=== PATIENT | male | born 2000 | race Hispanic/Latino ===

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

== ENCOUNTER 2024-01-19 03:58 | Emergency (ER) | payer SELFPAY ==
--- OUTSIDE RECORDS SUMMARY | 2024-01-19 04:01 | XMS REPORT | Continuity of Care Document ---
Author Name Unknown Address [address] [facility] [place] [address] [facility] thconnect Address [address] [facility] [place] [address] Care Team Providers Care Boiler Washer Name Role Phone PCP, PATIENT DOES NOT HAVE A Primary Care Physic donna Unavailable LEONA BANG Attending Clinician Unavailable Leona Bang MD Attending Clinician TODD AQUINO Attending Clinician Unavailable LEONA BANG Admitting Clinician Unavailable Payers Payer Name Policy Type Policy Number Effective Date Expirati on Date Source [facility] [id number] 2020 00:00:00 Allergies, Adverse Reactions, Alerts Allergy Name Allergy Type Status Severity Reaction(s) Onset Date Inactive Date Treating Clinician Comments Source NO KNOWN ALLERGIE S Drug Class Active [facility] Social History Social Habit Start Date Stop Date Quantity Comments Source Sexual orientation U [facility] Sex assigned at 2000 00:00:00 2000 00:00:00 [facility] Smoking Status Start Date Stop Date Source Tobacco smoking consumption unknown [facility] Medications Ordered Medication Name Filled Medication Name Start Date Stop Date Current Medication? Ordering Clinician Indication Dosage Frequency Signature (SIG) Comments Components Source ibuprofen (IBU) tablet 800 mg 12-20 21:00: 00 12-20 21:28 :00 No 800mg 800 mg, Oral, ONCE, 1 dose, On Thu12/21/23 at 1600, EFRAÍN [facility] ibuprofen 800 mg tablet 12-20 00:00: 00 Yes [id number] 800mg Take 1 tablet by mouth every 8 (eight) hours as needed for Pain (scale 4-6). [facility] ibuprofen 800 mg tablet 12-27 00:00: 00 12-20 00:00 :00 No [id number] 800mg Take 1 tablet by mouth every 8 (eight) hours as needed for Pain (scale 4-6). [facility] ALBUTEROL INHALE 03-10 12:21: 45 Yes None Entered [facility] Vital Signs Vital Name Observation Time Observation Value Comments S our Systolic blood pressure 2023-12-21 20:44:00 181 mm[Hg] [facility] Diastolic blood pressure 2023-12-21 20:44:00 83 mm[Hg] [facility] Heart rate 2023-12-21 20:44:00 99 /min [facility] Body temperature 2023-12-21 20:44:00 37.22 Heather [facility] Respiratory rate 2023-12-21 20:44:00 14 /min [facility] Body height 2023-12-21 20:44:00 172.7 cm [facility] Body weight 2023-12-21 20:44:00 145.151 kg [facility] BMI 2023-12-21 20:44:00 48.66 kg/m2 [facility] Oxygen saturation in Arterial blood by Pulse oximetry 2023-12-21 20:44:00 98 /min [facility] Procedures Procedure Date / Time Performed Performing Clinicia n Source XR SACRUM AND COCCYX 2023-12-21 21:16:55 Akbar Bang [facility] XR LUMBAR SPINE 3 VW 2023-12-21 21:16:37 Akbar Bang [facility] Encounters Start Date/Time End Date/Time Encounter Type Admission Type Attending Clinicians Care Facility Care Department Encounter ID Source 2023-12-21 15:46:00 2023-12-21 16:53:00 Emergency X LEONA BANG [facility] ERT [id number] [facility] 2023-12-21 15:46:00 2023-12-21 16:53:00 Emergency Leona Bang [facility] [id number] [id number] [facility] 2020-12-26 23:27:00 2020-12-26 23:27:00 Emergency X TODD AQUINO [facility] ERT [id number] [facility] Results Test Description Test Time Test Comments Results Resul t Comments Source XR LUMBAR SPINE 3 VW 2023-12-21 21:25:44 EXAM: XR LUMBAR SPINE 3 VW, XR SACRUM AND COCCYX HISTORY: fall COMPARISON: None. [facility] XR SACRUM AND COCCYX 2023-12-21 21:25:44 EXAM: XR LUMBAR SPINE 3 VW, XR SACRUM AND COCCYX HISTORY: fall COMPARISON: None. [facility] Notes Date/Time Note Provider Source 2023-12-21 16:53:14 [id number]:53:14 Written/verbal d/c instructions, out of er no distress [id number] department UyihWT4946-19-70G54:53:29Emergency department [id number]. [id number] for patient [id number]r C-CDA narrative [id number] M. Barton RN[address] Pu[id number] PYCBQCXZXUXOUTDECMSHJ4567-47-15F82:53 :291.2.840.417335.1.72.3.15|1.2.840.1 [id number] 2 June Sutton RN [facility] 2023-12-21 15:42:27 [id number]:42:27 Pt states " my Knee give up yesterday and I fell, I fell on my butt and my tailbone is hurting right now" 21917-7Whnntyxtq department Triage tykfKE7840-46-72M88:46:15[facility] Triage [id number]. [id number] for patient [id number] department NoteLNNARRATIVEFormatted C-CDA narrative [id number] D Latorilla RN[address] [id number] URDDNTKTGDHIAPVJBPDYT1866-51-07B60:46 :151.2.840.119032.1.72.3.15|1.2.840.1 [id number] 5 Katty Meza RN [facility] 2023-12-21 15:38:00 [id number]:38:00 [facility] Emergency Department NotePatient Name: Yossi Hernandez of : 2000 23 year old maleTreatment Room: [place] [address]Medical Record Number: [id number] Care Physician: Roxy Sweet (Inactive)Patient Escorted by: Family [5]Mode of Arrival: Personal means [1]EMS Treatment Prior to ED Arrival:Travel and Exposure Screening:SymptomsDoes patient have any of these symptoms?: (not recorded)Exposure ScreeningHas patient had contact with someone with a communicable disease in the last month?: (not recorded)Diseases exposed to:: (not recorded)Is Patient ?: (not recorded)Exposure Date: (not recorded)Chief Complaint:Chief ComplaintPatient presents withFallyesterdayHistory of Present Illness:Pt here for a fall,He slipped and landed on his tailbone, he can ambulate, he has not taken any meds, he has pain to tailbone, he has pain to sacrumHe has not lost control of bladder or bowelPast Medical History/Immunizations:History reviewed. No pertinent past medical history.Allergies:No Known AllergiesPast Social History:Substance & Sexual ActivityNo substance use or sexual activity history on file.Past Surgical History:History reviewed. No pertinent surgical history.Review of Systems:Review of SystemsConstitutional: Negative for diaphoresis and fatigue.HENT: Negative.Respiratory: Negative.Musculoskeletal: Positive for gait problem.All other systems reviewed and are negative.Physical Exam:ED Triage Vitals [12/21/23 1544]Weight 145.2 kg (320 lb)Actual or estimated Estimated by patient/family reportHeight 1.727 m (5' 8")BP (!) 181/83Pulse 99Resp 14Temp 37.2 ?C (99 ?F)Temp source OralSpO2 98 %Measured on Room airPhysical ExamVitals and nursing note reviewed.Constitutional:Appearance: He is obese.HENT:Head: Normocephalic.Right Ear: External ear normal.Left Ear: External ear normal.Nose: Nose normal.Mouth/Throat:Mouth: Mucous membranes are moist.Eyes:Extraocular Movements: Extraocular movements intact.Pupils: Pupils are equal, round, and reactive to light.Cardiovascular:Rate and Rhythm: Normal rate and regular rhythm.Pulmonary:Effort: Pulmonary effort is normal.Abdominal:General: Abdomen is flat.Palpations: Abdomen is soft.Musculoskeletal:General: No swelling or deformity. Normal range of motion.Cervical back: Normal range of motion.Comments: Tender to palpation tailbone, steady gaitSkin:General: Skin is warm.Capillary Refill: Capillary refill takes less than 2 seconds.Neurological:General: No focal deficit present.Mental Status: He is alert and oriented to person, place, and time.Radiology:XR SACRUM AND COCCYXFinal ResultEXAM: XR LUMBAR SPINE 3 VW, XR SACRUM AND COCCYXHISTORY: fallCOMPARISON: None.IMPRESSIONFINDINGS/IMPRESSION::F rontal and lateral radiographs of lumbar spine were performed.There are 5 nonrib-bearing lumbar type segments.The vertebral bodies are normal in height and alignment.Disc spaces are preserved.The paraspinal soft tissues are unremarkable.Intact cortical margins of the visualized sacrum and coccyx. Normalalignment of the sacrococcygeal junction. The visualized pelvic bones areunremarkable.XR LUMBAR SPINE 3 VWFinal ResultEXAM: XR LUMBAR SPINE 3 VW, XR SACRUM AND COCCYXHISTORY: fallCOMPARISON: None.IMPRESSIONFINDINGS/IMPRESSION::F rontal and lateral radiographs of lumbar spine were performed.There are 5 nonrib-bearing lumbar type segments.The vertebral bodies are normal in height and alignment.Disc spaces are preserved.The paraspinal soft tissues are unremarkable.Intact cortical margins of the visualized sacrum and coccyx. Normalalignment of the sacrococcygeal junction. The visualized pelvic bones areunremarkable.Lab Results:Lab Results - No data to displayEKG:If EKG completed, see Procedure Note.Orders and Treatments:Orders Placed This EncounterProceduresXR SACRUM AND COCCYXXR LUMBAR SPINE 3 VWOrders Placed This EncounterMedicationsibuprofen (IBU) tablet 800 mgFirst Provider Eval:ED EventsDate/Time Event User Rkwfocos90/03/24 1545 Medical Screening Begins LEONA BANG MD --12/21/23 1545 First Provider Evaluation LEONA BANG MD --ED COURSEDiagnosis/Impression as of 12/21/23 1634Fall, initial encounterSacral painContusion of sacrum, initial encounterProcedures:ProceduresMDM:Med ical Decision MakingPt here for a fall,He slipped and landed on his tailbone, he can ambulate, he has not taken any meds, he has pain to tailbone, he has pain to sacrumHe has not lost control of bladder or bowelDdx contusion fracture l spine injuryXray done and stableMotrin rx givenPt to follow up and take motrin for painAnd use donut pillowAmount and/or Complexity of Data ReviewedRadiology: ordered.Details: No results found for this or any previous visit (from the past 24 hour(s)).Hospital Encounter on 12/21/23-XR SACRUM AND COCCYX:NarrativeEXAM: XR LUMBAR SPINE 3 VW, XR SACRUM AND COCCYXHISTORY: fallCOMPARISON: None.ImpressionFINDINGS/IMPRESSION::F rontal and lateral radiographs of lumbar spine were performed.There are 5 nonrib-bearing lumbar type segments.The vertebral bodies are normal in height and alignment.Disc spaces are preserved.The paraspinal soft tissues are unremarkable.Intact cortical margins of the visualized sacrum and coccyx. Normalalignment of the sacrococcygeal junction. The visualized pelvic bones areunremarkable.-XR LUMBAR SPINE 3 VW:NarrativeEXAM: XR LUMBAR SPINE 3 VW, XR SACRUM AND COCCYXHISTORY: fallCOMPARISON: None.ImpressionFINDINGS/IMPRESSION::F rontal and lateral radiographs of lumbar spine were performed.There are 5 nonrib-bearing lumbar type segments.The vertebral bodies are normal in height and alignment.Disc spaces are preserved.The paraspinal soft tissues are unremarkable.Intact cortical margins of the visualized sacrum and coccyx. Normalalignment of the sacrococcygeal junction. The visualized pelvic bones areunremarkable.RiskPrescription drug management.Flowsheet Documentation:Scoring Tools:No data recordedDisposition/Condition:ED DispositionNoneDischarge Medications:Patient's MedicationsSTART taking these medicationsNo medications on fileCONTINUE taking these medications which have NOT CHANGEDALBUTEROL INHALE None EnteredIBUPROFEN 800 MG TABLET Take 1 tablet by mouth every 8 (eight) hours as needed for Pain (scale 4-6).SINGULAIR ORAL None EnteredSTART taking Modified Medications as PrescribedNo medications on fileSTOP taking these medicationsNo medications on fileFollow-up:Electronically signed by:Leona Bang MD12/21/23 1641 [id number] Emergency department LzzmEV7089-32-08R40:41:32Physician Emergency department [id number]. [id number] for patient lzqr76548-6Olyzygwkh department NoteLNNARRATIVEFormatted C-CDA narrative textUTMBPRESBYTERIAN SANTA FE MEDICAL CENTER - [address] [id number] [id number]:41 :321.2.840.458821.1.72.3.15|1.2.840.1 [id number] 5 [facility]
[2024-01-19] MEDS ORDERED: METOCLOPRAMIDE 10 MG/2mL INJ ONE (04:53)
[2024-01-19] MEDS ORDERED: ONDANSETRON 4 MG/2 ML VIAL ONE (04:53)
[2024-01-19] MEDS ORDERED: FAMOTIDINE 20 MG/2 ML VIAL IV ONE (04:54)
[2024-01-19] MEDS ORDERED: NA CHLORIDE 0.9% 1,000 ML ONE (04:54)
[2024-01-19 04:55] LABS: Absolute Eosinophils 0.2 K/uL (0-0.5); Absolute Monocytes 1.1 K/uL (0.1-1.3); MCV 88.7 fL (80-100)
[2024-01-19 05:02] LABS: Absolute Lymphocytes (CBC) 2.8 K/uL (0.7-4.9); Basophils % 0.5 % (0-1.3); Eosinophils % 2.2 % (0-4.4); Hematocrit 39.1 % (39.6-49.0); Hemoglobin 13.2 g/dL (13.6-17.9); Lymphocytes % 34.6 % (15.3-44.8); MCH 29.9 pg (27.0-35.0); MCHC 33.7 g/dL (32.0-36.0); Monocytes % 13.9 % (3.3-12.3); Neutrophils % 48.8 % (41.7-73.7); Nucleated Red Blood Cells % 0.2 % (0-0); Platelets 372 thou/uL (152-406); Red Cell Distribution Width 13.7 % (12.1-15.2)
[2024-01-19 05:06] LABS: Albumin 3.5 g/dL (3.4-5.0); Albumin/Globulin Ratio 0.7 (1.1-1.8); Anion Gap 8.6 mEq/L (5.0-15.0); Bilirubin Total 0.4 mg/dL (0.2-1.0); Globulin 4.7 g/dL (2.3-3.5); Potassium 3.6 mEq/L (3.5-5.1); Protein, Total 8.2 g/dL (6.4-8.2)
--- NOTE | 2024-01-19 06:18 | ER ---
Nurse's Notes [facility] Name: Castillo Baptiste Age: 23 yrs Sex: Male : 2000 Arrival Date: 01/19/2024 Time: 03:58 Bed 17 Private MD: Diagnosis: Hematemesis;Acute hematemesis secondary to retching;Acute tonsillitis, unspecified Presentation: 01/18 04:16 Chief complaint: Patient states: I was recently diagnosed with an upper respiratory kd3 infection and have had a fever. My throat started to hurt on night and it also looks like i have tonsil stones. This morning i coughed up some bloody mucous and then i vomited and there was bright red blood in the toilet. Coronavirus screen: Vaccine status: Patient reports being unvaccinated. Ebola Screen: No symptoms or risks identified at this time. 04:16 Method Of Arrival: Ambulatory kd3 04:19 Initial Sepsis Screen: Does the patient meet any 2 criteria? No. Patient's initial kd3 sepsis screen is negative. Does the patient have a suspected source of infection? No. Patient's initial sepsis screen is negative. Risk Assessment: Do you want to hurt yourself or someone else? Patient reports no desire to harm self or others. Onset of symptoms was January 19, 2024. 04:19 Acuity: BLAINE 3 kd3 Triage Assessment: 04:19 General: Appears in no apparent distress. Behavior is calm, cooperative. Pain: kd3 Complains of pain in uvula, left aspect of posterior pharynx and right aspect of posterior pharynx. Neuro: Level of Consciousness is awake, alert, obeys commands, Oriented to person, place, time, situation. Historical: - Allergies: 04:19 No Known Allergies; kd3 - Immunization history:: Adult Immunizations up to date. - Infectious Disease History:: Denies. - Social history:: Smoking status: Patient denies any tobacco usage or history of. - Family history:: not pertinent. Screenin:40 [facility] ED Fall Risk Assessment (Adult) History of falling in the last 3 months, ha1 including since admission No falls in past 3 months (0 pts) Confusion or Disorientation No (0 pts) Intoxicated or Sedated No (0 pts) Impaired Gait No (0 pts) Mobility Assist Device Used No (0 pt) Altered Elimination No (0 pt) Score/Fall Risk Level 0 - 2 = Low Risk Oriented to surroundings, Maintained a safe environment, Educated pt \T\ family on fall prevention, incl call for assistance when getting out of bed, Hourly rounding (assess needs \T\ fall precautionary measures) done. Abuse screen: Denies threats or abuse. Denies injuries from another. Nutritional screening: No deficits noted. Tuberculosis screening: No symptoms or risk factors identified. Assessment: 04:07 General: Appears comfortable, Behavior is calm, cooperative. Pain: Complains of pain in ha1 sore throat. Neuro: Level of Consciousness is awake, alert, obeys commands, Oriented to person, place, time, situation. Cardiovascular: Capillary refill < 3 seconds Patient's skin is warm and dry. Respiratory: Airway is patent Respiratory effort is even, unlabored, Respiratory pattern is regular, symmetrical. GI: Abdomen is round non-distended, obese, Bowel sounds present X 4 quads. Reports nausea, vomiting blood. EENT: Reports pain in mouth when swallowing. Derm: Skin is pink, warm \T\ dry. Musculoskeletal: Circulation, motion, and sensation intact. Range of motion: intact in all extremities. 05:00 Reassessment: Patient and/or family updated on plan of care and expected duration. Pain ha1 level reassessed. Patient is alert, oriented x 3, equal unlabored respirations, skin warm/dry/pink. 06:00 Reassessment: Patient and/or family updated on plan of care and expected duration. Pain ha1 level reassessed. Patient is alert, oriented x 3, equal unlabored respirations, skin warm/dry/pink. Patient denies pain at this time. Patient states feeling better. Patient states symptoms have improved. Vital Signs: 04:16 BP 127 / 70; Pulse 107; Resp 16; Temp 99(O); Pulse Ox 99% ; Weight 151.05 kg; Height 5 kd3 ft. 7 in. ; 05:00 BP 127 / 61; Pulse 98; Resp 17 S; Pulse Ox 99% on R/A; ha1 06:00 BP 123 / 61; Pulse 71; Resp 17 S; Pulse Ox 97% on R/A; ha1 04:16 Body Mass Index 52.15 (151.05 kg, 170.18 cm) kd3 [place] Coma Score: 06:25 Eye Response: spontaneous(4). Motor Response: obeys commands(6). Verbal Response: sp4 oriented(5). Total: 15. ED Course: 04:03 Patient arrived in ED. mr 04:07 Patient has correct armband on for positive identification. Bed in low position. Call ha1 light in reach. Side rails up X 1. Adult w/ patient. 04:19 Luigi Gurrola MD is Attending Physician. sp4 04:19 Triage completed. kd3 04:19 Arm band placed on. kd3 04:22 Seema Benton, DWAYNE is Primary Nurse. ha1 04:43 Inserted saline lock: 20 gauge in right antecubital area, using aseptic technique. oe Blood collected. 04:44 Lipase Sent. oe 04:44 CMP Sent. oe 04:44 CBC with Diff Sent. oe 06:00 Provided Education on: follow ups . ha1 06:34 No provider procedures requiring assistance completed. IV discontinued, intact, ha1 bleeding controlled, No redness/swelling at site. Pressure dressing applied. Administered Medications: 05:00 Drug: NS 0.9% IV 1000 ml IV at 1 bolus Per protocol; 1000 mL bolus Route: IV; Rate: 1 ha1 bolus; Site: right antecubital; 06:32 Follow up: Response: No adverse reaction; IV Status: Completed infusion; IV Intake: ha1 1000ml 05:00 Drug: Ondansetron IVP 8 mg IVP once; over 2 minutes Route: IVP; Site: right antecubital;ha1 05:28 Follow up: Response: No adverse reaction; Marked relief of symptoms ha1 05:02 Drug: metoCLOPramide IVP 10 mg IVP once; over 1 to 2 minutes Route: IVP; Site: right ha1 antecubital; 05:28 Follow up: Response: No adverse reaction; Marked relief of symptoms ha1 05:04 Drug: Famotidine IVP 20 mg IVP once; dilute with 10 mL 0.9% NaCl; give over 2 minutes ha1 Route: IVP; Site: right antecubital; 05:28 Follow up: Response: No adverse reaction; Marked relief of symptoms ha1 06:20 Drug: Alum-Mag Hydroxide-Simeth PO Suspension (200 mg-200 mg-20 mg/5 mL) 30 ml PO once ha1 Route: PO; 06:31 Follow up: Response: No adverse reaction ha1 Medication: 06:33 VIS not applicable for this client. ha1 Intake: 06:32 IV: 1000ml; Total: 1000ml. ha1 Outcome: 06:17 Discharge ordered by . sp4 06:34 Discharged to home ambulatory, with family, ha1 06:34 Condition: stable 06:34 Discharge instructions given to patient, family, Instructed on discharge instructions, follow up and referral plans. medication usage, Demonstrated understanding of instructions, follow-up care, medications, Prescriptions given X 3, 06:35 Patient left the ED. ha1 Signatures: Madelyn Owusu, Reg Reg mr Ervin, Javier Angelica Walker RN RN kd3 Seema Benton RN RN ha1 Luigi Gurrola MD MD sp4
--- NOTE | 2024-01-19 06:18 | EDPHYS ---
Physician Documentation [facility] Name: Castillo Baptiste Age: 23 yrs Sex: Male : 2000 Arrival Date: 01/19/2024 Time: 03:58 Bed 17 Private MD: ED Physician Luigi Gurrola HPI: 01/18 04:19 This 23 yrs old Male presents to ER via Ambulatory with complaints of vomiting sp4 blood. 06:25 Patient states he was diagnosed with upper respiratory infection and now he presents sp4 with vomiting or retching and 1 episode of vomiting blood.. Historical: - Allergies: 04:19 No Known Allergies; kd3 - Immunization history:: Adult Immunizations up to date. - Infectious Disease History:: Denies. - Social history:: Smoking status: Patient denies any tobacco usage or history of. - Family history:: not pertinent. ROS: 06:25 Constitutional: Negative for fever, chills, and weight loss, positive for bloody emesis sp4 06:25 All other systems are negative, Exam: 06:25 Constitutional: This is a well developed, well nourished patient who is awake, alert, sp4 and in no acute distress. Head/Face: Normocephalic, atraumatic. Eyes: Pupils equal round and reactive to light, extra-ocular motions intact. Lids and lashes normal. Conjunctiva and sclera are not injected. Cornea within normal limits. Periorbital areas with no swelling, redness, or edema. ENT: Nares patent. No nasal discharge, no septal abnormalities noted. Tympanic membranes are normal and external auditory canals are clear. Oropharynx with no redness, swelling, or masses, exudates, or evidence of obstruction, uvula midline. Mucous membranes moist. Neck: Trachea midline, no thyromegaly or masses palpated, and no cervical lymphadenopathy. Supple, full range of motion without nuchal rigidity, or vertebral point tenderness. Chest/axilla: Normal chest wall appearance and motion. Nontender with no deformity. No lesions are appreciated. Cardiovascular: Regular rate and rhythm with a normal S1 and S2. No gallops, murmurs, or rubs. Normal PMI, no JVD. No pulse deficits. Respiratory: Lungs have equal breath sounds bilaterally, clear to auscultation and percussion. No rales, rhonchi or wheezes noted. No increased work of breathing, no retractions or nasal flaring. Abdomen/GI: Soft, with normal bowel sounds. No distension or tympany. No guarding or rebound. No evidence of tenderness throughout. Back: No spinal tenderness. No costovertebral tenderness. Skin: Warm, dry with normal turgor. Normal color with no rashes, no lesions, and no evidence of cellulitis. MS/ Extremity: Pulses equal, no cyanosis. Neurovascular intact. Full, normal range of motion. Neuro: Awake and alert, GCS 15, oriented to person, place, time, and situation. Cranial nerves II-XII grossly intact. Motor strength 5/5 in all extremities. Sensory grossly intact. Psych: Awake, alert, with orientation to person, place and time. Behavior, mood, and affect are within normal limits Vital Signs: 04:16 BP 127 / 70; Pulse 107; Resp 16; Temp 99(O); Pulse Ox 99% ; Weight 151.05 kg; Height 5 kd3 ft. 7 in. ; 05:00 BP 127 / 61; Pulse 98; Resp 17 S; Pulse Ox 99% on R/A; ha1 06:00 BP 123 / 61; Pulse 71; Resp 17 S; Pulse Ox 97% on R/A; ha1 04:16 Body Mass Index 52.15 (151.05 kg, 170.18 cm) kd3 [place] Coma Score: 06:25 Eye Response: spontaneous(4). Motor Response: obeys commands(6). Verbal Response: sp4 oriented(5). Total: 15. MDM: 04:24 Patient medically screened. sp4 06:25 Differential Diagnosis altered mental status, sepsis, flu, Tawny-Heller syndrome. Data sp4 reviewed: vital signs, nurses notes. ED course: Patient stable for discharge home. No additional bloody emesis in the ER.. 01/18 04:20 Order name: CBC with Diff; Complete Time: 06:16 sp4 01/18 04:20 Order name: CMP; Complete Time: 06:16 sp4 01/18 04:20 Order name: Lipase; Complete Time: 06:16 sp4 01/18 04:20 Order name: IV Saline Lock; Complete Time: :44 sp4 01/18 04:20 Order name: Labs collected and sent; Complete Time: 04:44 sp4 Administered Medications: 05:00 Drug: NS 0.9% IV 1000 ml IV at 1 bolus Per protocol; 1000 mL bolus Route: IV; Rate: 1 ha1 bolus; Site: right antecubital; 06:32 Follow up: Response: No adverse reaction; IV Status: Completed infusion; IV Intake: ha1 1000ml 05:00 Drug: Ondansetron IVP 8 mg IVP once; over 2 minutes Route: IVP; Site: right antecubital;ha1 05:28 Follow up: Response: No adverse reaction; Marked relief of symptoms ha1 05:02 Drug: metoCLOPramide IVP 10 mg IVP once; over 1 to 2 minutes Route: IVP; Site: right ha1 antecubital; 05:28 Follow up: Response: No adverse reaction; Marked relief of symptoms ha1 05:04 Drug: Famotidine IVP 20 mg IVP once; dilute with 10 mL 0.9% NaCl; give over 2 minutes ha1 Route: IVP; Site: right antecubital; 05:28 Follow up: Response: No adverse reaction; Marked relief of symptoms ha1 06:20 Drug: Alum-Mag Hydroxide-Simeth PO Suspension (200 mg-200 mg-20 mg/5 mL) 30 ml PO once ha1 Route: PO; 06:31 Follow up: Response: No adverse reaction ha1 Disposition Summary: 01/19/24 06:17 Discharge Ordered Notes: Location: Home sp4 Problem: new sp4 Symptoms: have improved sp4 Condition: Stable sp4 Diagnosis - Hematemesis sp4 - Acute hematemesis secondary to retching sp4 - Acute tonsillitis, unspecified sp4 Followup: sp4 - With: Private Physician - When: As needed - Reason: Discharge Instructions: - Discharge Summary Sheet sp4 - Tawny-Heller Syndrome sp4 - Tonsillitis, Chla-hn-Yqni sp4 Forms: - Patient Portal Instructions sp4 Prescriptions: - omeprazole 40 mg Oral capsule,delayed release (e.c.) - dissolve 1 capsule ORAL route every morning for 30 days; 30 capsule; Refills: sp4 0, Product Selection Permitted - Cephalexin 500 mg Oral Capsule - take 1 capsule ORAL route every 12 hours for 10 days; 20 capsule; Refills: 0, sp4 Product Selection Permitted - ondansetron 8 mg Oral Tablet,disintegrating - take 1 tablet ORAL route every 8 hours PRN nausea; 30 tablet; Refills: 0, sp4 Product Selection Permitted Signatures: Dispatcher [employer] Angelica Norton RN RN kd3 Seema Benton RN RN ha1 Luigi Gurrola MD MD sp4 Corrections: (The following items were deleted from the chart) 04:20 04:20 CBC+H.LAB.BRZ ordered. EDMS EDMS 04:20 04:20 COMPREHENSIVE METABOLIC PANEL+C.LAB.BRZ ordered. EDMS EDMS 04:20 04:20 LIPASE+C.LAB.BRZ ordered. EDMS EDMS
[2024-01-19] MEDS ORDERED: MAGNES/ALUMIN/SIMET 30ML UCUP ONE (06:23)
[2024-01-19 07:00] VITALS: BP 123/61; TEMP 99; O2SAT 97
== END 2024-01-19 06:35 | disposition home or self-care (01) ==
LOC: ER 03:58
DX: J03.90 Acute tonsillitis, unspecified (principal)
CPT/HCPCS: 36415; 80053; 83690; 85025; J2405; J2765; J7030

== ENCOUNTER 2024-08-25 16:22 | Emergency (ER) | payer SELFPAY ==
--- OUTSIDE RECORDS SUMMARY | 2024-08-25 16:25 | XMS REPORT | Continuity of Care Document ---
Author Name Unknown Address [address] [place] [address] [facility] Address [address] [place] [address] Care Team Providers Care Engineer Third Assistant Name Role Phone PCP, PATIENT DOES NOT HAVE A Primary Care Physic donna Unavailable LEONA BANG Attending Clinician Unavailable Leona Bang MD Attending Clinician TODD AQUINO Attending Clinician Unavailable LEONA BANG Admitting Clinician Unavailable Payers Payer Name Policy Type Policy Number Effective Date Expirati on Date Source [facility] [id number] 2020 00:00:00 Allergies, Adverse Reactions, Alerts Allergy Name Allergy Type Status Severity Reaction(s) Onset Date Inactive Date Treating Clinician Comments Source NO KNOWN ALLERGIE S Drug Class Active [facility] Social History Social Habit Start Date Stop Date Quantity Comments Source Sexual orientation U [facility] Sex assigned at 2000 00:00:00 2000 00:00:00 [facility] Smoking Status Start Date Stop Date Source Tobacco smoking consumption unknown [facility] Medications Ordered Medication Name Filled Medication Name Start Date Stop Date Current Medication? Ordering Clinician Indication Dosage Frequency Signature (SIG) Comments Components Source ibuprofen (IBU) tablet 800 mg 12-20 21:00: 00 12-20 21:28 :00 No 800mg 800 mg, Oral, ONCE, 1 dose, On Thu12/21/23 at 1600, EFRAÍN [facility] ibuprofen 800 mg tablet 12-20 00:00: 00 Yes [id number] 800mg Take 1 tablet by mouth every 8 (eight) hours as needed for Pain (scale 4-6). [facility] ibuprofen 800 mg tablet 12-27 00:00: 00 12-20 00:00 :00 No [id number] 800mg Take 1 tablet by mouth every 8 (eight) hours as needed for Pain (scale 4-6). [facility] ALBUTEROL INHALE 03-10 12:21: 45 Yes None Entered [facility] Vital Signs Vital Name Observation Time Observation Value Comments S our Systolic blood pressure 2023-12-21 20:44:00 181 mm[Hg] [facility] Diastolic blood pressure 2023-12-21 20:44:00 83 mm[Hg] [facility] Heart rate 2023-12-21 20:44:00 99 /min [facility] Body temperature 2023-12-21 20:44:00 37.22 Heather [facility] Respiratory rate 2023-12-21 20:44:00 14 /min [facility] Body height 2023-12-21 20:44:00 172.7 cm [facility] Body weight 2023-12-21 20:44:00 145.151 kg [facility] BMI 2023-12-21 20:44:00 48.66 kg/m2 [facility] Oxygen saturation in Arterial blood by Pulse oximetry 2023-12-21 20:44:00 98 /min [facility] Procedures Procedure Date / Time Performed Performing Clinicia n Source XR SACRUM AND COCCYX 2023-12-21 21:16:55 Akbar Bang [facility] XR LUMBAR SPINE 3 VW 2023-12-21 21:16:37 Akbar Bang [facility] Encounters Start Date/Time End Date/Time Encounter Type Admission Type Attending Clinicians Care Facility Care Department Encounter ID Source 2023-12-21 15:46:00 2023-12-21 16:53:00 Emergency X LEONA BANG [facility] ERT [id number] [facility] 2023-12-21 15:46:00 2023-12-21 16:53:00 Emergency MerrittLeona [facility] [id number] [facility] 2020-12-26 23:27:00 2020-12-26 23:27:00 Emergency X TODD AQUINO [facility] ERT [id number] [facility] Results Test Description Test Time Test Comments Results Resul t Comments Source XR LUMBAR SPINE 3 VW 2023-12-21 21:25:44 EXAM: XR LUMBAR SPINE 3 VW, XR SACRUM AND COCCYX HISTORY: fall COMPARISON: None. [facility] XR SACRUM AND COCCYX 2023-12-21 21:25:44 EXAM: XR LUMBAR SPINE 3 VW, XR SACRUM AND COCCYX HISTORY: fall COMPARISON: None. [facility]
--- NOTE | 2024-08-25 16:44 | EDPHYS ---
Physician Documentation [facility] Name: Castillo Baptiste Age: 24 yrs Sex: Male : 2000 Arrival Date: 08/25/2024 Time: 16:22 Bed Waiting Private MD: Abhilash Mancini HPI: 08/25 16:39 This 24 yrs old Male presents to ER via Unassigned with complaints of Note to cp Return to Work. 16:39 Patient is a 24-year-old male who reports flulike symptoms that started last week on cp . Reports she has missed several days of work and needs a note to return to work. Patient denies any fevers over the last 24 hours and reports symptoms have markedly improved and is requesting to return to work. Historical: - Allergies: 16:39 No Known Allergies; me1 - Home Meds: 16:39 None [Active]; me1 - PMHx: 16:39 None; me1 - PSHx: 16:39 None; me1 - Immunization history:: Adult Immunizations up to date. - Infectious Disease History:: Denies. - Social history:: Smoking status: Reported history of juuling and/or vaping. ROS: 16:40 Constitutional: history per hpi cp Exam: 16:41 Head/Face: Normocephalic, atraumatic. cp 16:41 Constitutional: The patient appears in no acute distress, alert, awake, non-toxic, well developed, well nourished, obese, 16:41 Eyes: Periorbital structures: appear normal, Conjunctiva: normal, no exudate, no injection, Sclera: no appreciated abnormality, Lids and lashes: appear normal, bilaterally, 16:41 ENT: External ear(s): are unremarkable, Nose: is normal, Mouth: Lips: moist, Oral mucosa: moist, Posterior pharynx: Airway: no evidence of obstruction, patent, 16:41 Neck: ROM/movement: Meningeal signs: are not present, Lymph nodes: no appreciated lymphadenopathy, 16:41 Chest/axilla: Inspection: normal, 16:41 Cardiovascular: Rate: normal, 16:41 Respiratory: the patient does not display signs of respiratory distress, Respirations: normal, no use of accessory muscles, no retractions, labored breathing, is not present, Breath sounds: are clear throughout, no decreased breath sounds, no stridor, no wheezing, 16:41 Abdomen/GI: Exam negative for discomfort, distension, guarding, Inspection: abdomen appears normal, Vital Signs: 16:37 BP 154 / 86; Pulse 86; Resp 17; Temp 98.4; Pulse Ox 97% ; Weight 151.05 kg; Height 5 me1 ft. 9 in. ; Pain 0/10; 16:37 Body Mass Index 49.17 (151.05 kg, 175.26 cm) me1 16:37 Pain Scale: Adult me1 MDM: 16:42 Differential diagnosis: viral Infection, bacterial infection, bronchitis, pneumonia cp gastroenteritis, meningitis. Data reviewed: vital signs, nurses notes, and as a result, I will discharge patient. 16:44 Medical Screening Exam initiated cp Administered Medications: No medications were administered Disposition Summary: 08/25/24 16:44 Discharge Ordered Notes: Location: Home cp Problem: new cp Symptoms: have improved cp Condition: Stable cp Diagnosis - Encounter for examination and observation for unspecified reason cp Followup: cp - With: Private Physician - When: As needed - Reason: Worsening of condition Discharge Instructions: - Form - Return To Work cp - Discharge Summary Sheet me1 Forms: - Medication Reconciliation Form cp - Antibiotic Education cp - Prescription Opioid Use cp - Patient Portal Instructions cp - Leadership Thank You Letter cp - Work release form me1 Addendum: 08/26/2024 23:24 Co-signature as Attending Physician, Abhilash Preston MD I agree with the assessment and c ernst plan of care. Signatures: Abhilash Preston MD MD cha Page, Corey, PA PA cp Colleen Bardales, RN RN me1
--- NOTE | 2024-08-25 16:44 | ER ---
Nurse's Notes [facility] Name: Castillo Baptiste Age: 24 yrs Sex: Male : 2000 Arrival Date: 08/25/2024 Time: 16:22 Bed Waiting Private MD: Diagnosis: Encounter for examination and observation for unspecified reason Presentation: 08/25 16:37 Chief complaint: Patient states: cough, congestion, body aches and chills starting me1 . Feeling better and needs a note to return to work. Coronavirus screen: Vaccine status: Patient reports being unvaccinated. Ebola Screen: No symptoms or risks identified at this time. Initial Sepsis Screen: Does the patient meet any 2 criteria? No. Patient's initial sepsis screen is negative. Does the patient have a suspected source of infection? No. Patient's initial sepsis screen is negative. Risk Assessment: Do you want to hurt yourself or someone else? Patient reports no desire to harm self or others. Onset of symptoms was August 18, 2024. 16:37 [place] Of [place] [facility] Acuity: BLAINE 5 al1 Triage Assessment: 16:39 General: Appears in no apparent distress. obese, well groomed, well developed, Behavior me1 is calm, cooperative, appropriate for age. Pain: Denies pain. EENT: No signs and/or symptoms were reported regarding the EENT system. Neuro: Level of Consciousness is awake, alert, obeys commands, Oriented to person, place, time, situation, Appropriate for age. Cardiovascular: Patient's skin is warm and dry. Respiratory: Reports cough that is since last . Minimal now compared to how it was when he was feeling ill Airway is patent Respiratory effort is even, unlabored, Respiratory pattern is regular, symmetrical. GI: No signs and/or symptoms were reported involving the gastrointestinal system. : No signs and/or symptoms were reported regarding the genitourinary system. Derm: Skin is intact, is healthy with good turgor, Skin is pink, warm \T\ dry. Musculoskeletal: No signs and/or symptoms reported regarding the musculoskeletal system. Historical: - Allergies: 16:39 No Known Allergies; me1 - Home Meds: 16:39 None [Active]; me1 - PMHx: 16:39 None; me1 - PSHx: 16:39 None; me1 - Immunization history:: Adult Immunizations up to date. - Infectious Disease History:: Denies. - Social history:: Smoking status: Reported history of juuling and/or vaping. Screenin:41 [facility] ED Fall Risk Assessment (Adult) History of falling in the last 3 months, me1 including since admission No falls in past 3 months (0 pts) Confusion or Disorientation No (0 pts) Intoxicated or Sedated No (0 pts) Impaired Gait No (0 pts) Mobility Assist Device Used No (0 pt) Altered Elimination No (0 pt) Score/Fall Risk Level 0 - 2 = Low Risk Maintained a safe environment, Provided non-skid footwear, Hourly rounding (assess needs \T\ fall precautionary measures) done. Abuse screen: Denies threats or abuse. Nutritional screening: No deficits noted. Tuberculosis screening: No symptoms or risk factors identified. Assessment: 16:41 General: See triage assessment. me1 Vital Signs: 16:37 BP 154 / 86; Pulse 86; Resp 17; Temp 98.4; Pulse Ox 97% ; Weight 151.05 kg; Height 5 me1 ft. 9 in. ; Pain 0/10; 16:37 Body Mass Index 49.17 (151.05 kg, 175.26 cm) me1 16:37 Pain Scale: Adult al1 ED Course: 16:30 Patient arrived in ED. al6 16:35 Abhilash Aguiar PA is PHCP. cp 16:35 Abhilash Preston MD is Attending Physician. cp 16:39 Triage completed. me1 16:39 Arm band placed on Patient placed in waiting room. me1 16:41 Patient has correct armband on for positive identification. Bed in low position. Call al1 light in reach. Provided Education on: POC. Verbalized understanding.. 16:41 No provider procedures requiring assistance completed. Patient did [place] [facility] [place] emergency [place] visit. 16:46 Colleen Bardales, DWAYNE is Primary Nurse. me1 Administered Medications: No medications were administered Medication: 16:41 VIS not applicable for this client. me1 Outcome: 16:44 Discharge ordered by . cp 16:47 [place] [facility] [place] Condition: stable 16:47 Discharge instructions given to patient, Instructed on discharge instructions, follow up and referral plans. medication usage, Demonstrated understanding of instructions, follow-up care, medications, 16:47 Patient left the ED. me1 Signatures: Abhilash Aguiar PA PA cp Eddleman, Michelle, RN RN me1 Amy [email or web address]
[2024-08-25 16:51] VITALS: BP 154/86; TEMP 98.4; O2SAT 97
== END 2024-08-25 16:47 | disposition home or self-care (01) ==
LOC: ER 16:22
DX: Z02.79 Encounter for issue of other medical certificate (principal)
CPT/HCPCS: 99282